=== PATIENT | female | born 1990 | race American Indian/Alaskan Native ===

== ENCOUNTER 2016-09-02 16:32 | Emergency (ER) | payer BC ==
--- NOTE | 2016-09-02 17:39 | Emergency Department Report ---
Chief Complaint: Chest Pain Stated Complaint: SOB/BODY ACHES Time Seen by Provider: 09/02/16 17:25 - HPI History of Present Illness: 26-year-old -German female comes in with chest pain that started on Tuesday but has gotten worse today. She reports that it worse when she takes deep breaths. She is also reports having abdominal pressure this is been present for at least one week. She reports a fever today no nausea vomiting or diarrhea. - Exam Vital Signs: Vital Signs 09/02/16 17:01 Temperature 98.7 F Pulse Rate 71 Respiratory 18 Rate Blood Pressure 124/82 O2 Sat by Pulse 100 Oximetry Physical Exam: Patient's alert and oriented 3 she appears to be in a lot of pain. Patient is not able to chin to chest heaviness or rigidity, cardiac S1-S2 regular rate and rhythm respiratory clear to auscultation but difficulty taking deep breaths secondary to pain. Abdomen soft mildly tender to the epigastric area. MSE screening note: Focused history and physical exam performed. Due to findings the following was ordered: Discuss with Dr. Cueva. CBC BMP d-dimer UA urine test ordered. ED Disposition for MSE Condition: Stable
[2016-09-02 18:15] LABS: Basophils % (Auto) 0.8 % (0.0-1.8); Eosinophils % (Auto) 4.2 % (0.0-4.3); Hematocrit 43.1 % (30.3-42.9); Hemoglobin 14.1 gm/dl (10.1-14.3); Mean Corpuscular HGB Conc 33 % (30-34); Mean Corpuscular Hemoglobin 27 pg (28-32); Mean Corpuscular Volume 83 fl (79-97); Red Blood Count 5.19 M/mm3 (3.65-5.03); Red Cell Distribution Width 12.4 % (13.2-15.2); White Blood Count 7.3 K/mm3 (4.5-11.0)
[2016-09-02 18:21] LABS: Alanine Aminotransferase 12 units/L (7-56); Albumin 4.3 g/dL (3.9-5); Albumin/Globulin Ratio 1.4 %; Alkaline Phosphatase 52 units/L (35-129); Anion Gap 14 mmol/L; BUN/Creatinine Ratio 16.66; Bilirubin,Total 0.9 mg/dL (0.1-1.2); Blood Urea Nitrogen 10 mg/dL (7-17); Calcium 9.8 mg/dL (8.4-10.2); Carbon Dioxide 27 mmol/L (22-30); Chloride 102.3 mmol/L (98-107); Glucose 84 mg/dL (65-100); Potassium 3.9 mmol/L (3.6-5.0); Sodium 139 mmol/L (137-145); Total Protein 7.3 g/dL (6.3-8.2)
[2016-09-02 18:35] LABS: Platelet Count 143 K/mm3 (140-440)
[2016-09-02 18:41] LABS: Mean Platelet Volume 9.7 fl (6-12)
[2016-09-02 19:26] LABS: Bilirubin,Urine NEG (Negative); Blood,Urine NEG (Negative); Ketones,Urine NEG (Negative); Leukocyte Esterase,Urine NEG (Negative); Nitrite,Urine NEG (Negative); Protein,Urine <15 mg/dL mg/dL (Negative); RBC,Urine < 1.0 /HPF (0.0-6.0); Urobilinogen,Urine < 2.0 mg/dL (<2.0); WBC,Urine < 1.0 /HPF (0.0-6.0)
[2016-09-03] MEDS ORDERED: VALIUM IV ONE (01:33)
[2016-09-03] MEDS ORDERED: NACL 0.9% 1000 ML 1,000 ML IV ONE (01:33)
[2016-09-03] MEDS ORDERED: TORADOL IV ONE (01:33)
--- NOTE | 2016-09-03 01:35 | Emergency Department Report ---
ED General Adult HPI - General Chief complaint: Chest Pain Stated complaint: SOB/BODY ACHES Time Seen by Provider: 09/02/16 17:25 Source: patient, RN notes reviewed Mode of arrival: Ambulatory Limitations: No Limitations - History of Present Illness Initial comments: This is a 26-year-old female. She is previously unknown to me. Her primary care doctor is Dr. Kam The patient presents to the ER with multiple complaints. She complains of bilateral paraspinal back pain, paracervical back pain, and pleuritic pain. She also complains of total body aches and subjective fever. This has been present for one week. She also complains of lower abdominal pain. No nausea, vomiting or diarrhea. No irritative or obstructive urinary symptoms. No vaginal discharge. No sore throat. The pleuritic pain does not radiate to the back, arms or neck. There is no posterior extremity pain, there is no control use, no recent trips greater than 4 hours, no recent hospital admissions. -: Gradual Location: back, abdomen Quality: aching Consistency: intermittent Improves with: rest Worsens with: movement Associated Symptoms: cough, fever/chills, loss of appetite, weakness - Related Data Previous Rx's Medication Instructions Recorded Last Taken Type Doxycycline [Vibramycin] 100 mg PO Q12HR #28 capsule 09/03/16 Unknown Rx Ketorolac [Toradol] 10 mg PO Q6H PRN #20 tablet 09/03/16 Unknown Rx Ondansetron [Zofran Odt] 4 mg PO QID PRN #20 tab.rapdis 09/03/16 Unknown Rx Allergies Allergy/AdvReac Type Severity Reaction Status Date / Time Latex, Natural Rubber Allergy Hives Verified 09/02/16 17:00 ED Review of Systems ROS: Stated complaint: SOB/BODY ACHES Other details as noted in HPI Constitutional: malaise, weakness ENT: congestion Respiratory: cough Cardiovascular: as per HPI Gastrointestinal: as per HPI Genitourinary: as per HPI Musculoskeletal: back pain, arthralgia, myalgia Skin: denies: lesions Neurological: weakness Psychiatric: anxiety ED Past Medical Hx - Past Medical History Hx Asthma: Yes - Surgical History Additional Surgical History: Adnoids - Social History Smoking Status: Never Smoker Substance Use Type: None - Medications Home Medications: Home Medications Medication Instructions Recorded Confirmed Last Taken Type Doxycycline [Vibramycin] 100 mg PO Q12HR #28 capsule 09/03/16 Unknown Rx Ketorolac [Toradol] 10 mg PO Q6H PRN #20 tablet 09/03/16 Unknown Rx Ondansetron [Zofran Odt] 4 mg PO QID PRN #20 tab.rapdis 09/03/16 Unknown Rx ED Physical Exam - General Limitations: No Limitations General appearance: alert, in no apparent distress - Head Head exam: Present: atraumatic, normocephalic - Eye Eye exam: Present: normal appearance, PERRL, EOMI. Absent: nystagmus - ENT ENT exam: Present: normal exam, normal orophraynx, mucous membranes moist, normal external ear exam - Neck Neck exam: Present: normal inspection, tenderness, full ROM, other (there is reproducible paracervical neck pain. is left-sided adenopathy noted, there is no trismus, malocclusion, there is no stridor. The patient is speaking in full sentences.). Absent: meningismus, lymphadenopathy, thyromegaly - Respiratory Respiratory exam: Present: normal lung sounds bilaterally. Absent: respiratory distress, wheezes, rales, rhonchi, stridor, chest wall tenderness - Cardiovascular Cardiovascular Exam: Present: regular rate, normal rhythm, normal heart sounds. Absent: bradycardia, tachycardia, irregular rhythm, systolic murmur, diastolic murmur, rubs, gallop - GI/Abdominal GI/Abdominal exam: Present: soft, tenderness, normal bowel sounds, other (his mild diffuse abdominal tenderness in the bilateral lower quadrants. There is no rebound, guarding or peritoneal signs.). Absent: distended, guarding, rebound, rigid, pulsatile mass - External exam: Present: normal external exam Speculum exam: Present: normal speculum exam Bi-manual exam: Present: cervical motion tendernes, adnexal tenderness, adnexal mass, other (escorted by BING Blelo during yeast culture operator exam) - Extremities Exam Extremities exam: Present: normal inspection, full ROM, normal capillary refill. Absent: tenderness, pedal edema, joint swelling, calf tenderness - Back Exam Back exam: Present: normal inspection, muscle spasm, paraspinal tenderness. Absent: tenderness, CVA tenderness (R) - Neurological Exam Neurological exam: Present: alert, oriented X3, normal gait, other (Extraocular movements intact. Tongue midline. No facial droop. Facial sensation intact to light touch in the V1, V2, V3 distribution bilaterally. 5 and 5 strength in 4 extremities.. Sensation is intact to light touch in 4 extremities.). Absent : motor sensory deficit - Psychiatric Psychiatric exam: Present: normal affect, normal mood - Skin Skin exam: Present: warm, dry, intact, normal color. Absent: rash ED Course Vital Signs 09/02/16 09/03/16 09/03/16 17:01 04:37 05:51 Temperature 98.7 F 98.3 F Pulse Rate 71 79 75 Respiratory 18 16 16 Rate Blood Pressure 124/82 Blood Pressure 111/63 119/76 [Left] O2 Sat by Pulse 100 98 99 Oximetry - Reevaluation(s) Reevaluation #1: 09/03/16 02:57 Differential diagnosis: Nonspecific pleuritis, viral syndrome, pelvic inflammatory disease, myositis, urinary tract infection, pulmonary embolus, strep pharyngitis, acute HIV syndrome, gonorrhea/chlamydia Assessment and plan: 25-year-old female with body aches, paraspinal neck pain, pleuritic pain, abdominal pain. She is afebrile with reassuring vital signs, has no pulmonary embolus or DVT risk factors, she is low risk by well's criteria , and she is perc negative. A d-dimer was negative. Low risk by hard score, low risk by BRENDA score. Neck pain is paraspinal and reproducible. She is afebrile ER, mentating normally, given this, I think deep space neck abscess is very unlikely. She is somewhat tender in her abdomen, no cervical motion tenderness and bilateral adnexal tenderness. She will be treated symptomatically, we will obtain a CT scan of the abdomen and pelvis. We will reassess after initial data points. Reevaluation #2: 09/03/16 04:45 Story of the chest is negative. Patient with cervical motion tenderness and adnexal tenderness. CT scan of the abdomen and pelvis demonstrates no secondary signs of appendicitis. The appendix itself is not identified. There is nonspecific enhancement of the uterus, and nonspecific fluid. Patient not currently on her menstruation. Highly suspect pelvic inflammatory disease. Case is discussed with obstetrics on-call, Dr. Song. We both agree that given the current set of vital signs and laboratory data, patient does not require admission, and neither of us believe that the patient requires an emergent ultrasound at this time. No abscess is identified. Patient is feeling much improved, and has good range of motion of her neck. She will be treated empirically with doxycycline and ceftriaxone. She will be discharged with instructions to follow-up in 48 hours for recheck. She can follow-up Either in the distribution clerk's office, or return to the ER. She is afebrile, reassuring vital signs, tolerating liquid feeds, young with no other medical comorbidities, and appears to be reliable. ED Medical Decision Making - Lab Data Result diagrams: 09/02/16 17:45 09/02/16 17:45 Vital Signs 09/02/16 17:01 Temperature 98.7 F Pulse Rate 71 Respiratory 18 Rate Blood Pressure 124/82 O2 Sat by Pulse 100 Oximetry Lab Results 09/02/16 09/02/16 09/02/16 Range/Units 17:45 17:45 17:45 WBC 7.3 (4.5-11.0) K/mm3 RBC 5.19 H (3.65-5.03) M/mm3 Hgb 14.1 (10.1-14.3) gm/dl Hct 43.1 H (30.3-42.9) % MCV 83 (79-97) fl MCH 27 L (28-32) pg MCHC 33 (30-34) % RDW 12.4 L (13.2-15.2) % Plt Count 143 (140-440) K/mm3 Lymph % (Auto) 35.0 (13.4-35.0) % [place] % (Auto) 5.8 (0.0-7.3) % Eos % (Auto) 4.2 (0.0-4.3) % Baso % (Auto) 0.8 (0.0-1.8) % Lymph # 2.5 (1.2-5.4) K/mm3 [place] # 0.4 (0.0-0.8) K/mm3 Eos # 0.3 (0.0-0.4) K/mm3 Baso # 0.1 (0.0-0.1) K/mm3 Seg Neutrophils % 54.2 (40.0-70.0) % Seg Neutrophils # 4.0 (1.8-7.7) K/mm3 D-Dimer 211.35 (0-234) ng/mlDDU Sodium 139 (137-145) mmol/L Potassium 3.9 (3.6-5.0) mmol/L Chloride 102.3 (98-107) mmol/L Carbon Dioxide 27 (22-30) mmol/L Anion Gap 14 mmol/L BUN 10 (7-17) mg/dL Creatinine 0.6 L (0.7-1.2) mg/dL Estimated GFR > 60 ml/min BUN/Creatinine Ratio 16.66 % Glucose 84 (65-100) mg/dL Calcium 9.8 (8.4-10.2) mg/dL Total Bilirubin 0.9 (0.1-1.2) mg/dL AST 12 (5-40) units/L ALT 12 (7-56) units/L Alkaline Phosphatase 52 (35-129) units/L Total Protein 7.3 (6.3-8.2) g/dL Albumin 4.3 (3.9-5) g/dL Albumin/Globulin Ratio 1.4 % Urine Color (Yellow) Urine Turbidity (Clear) Urine pH (5.0-7.0) Ur Specific [place] (1.003-1.030) Urine Protein (Negative) mg/dL Urine Glucose (UA) (Negative) mg/dL Urine Ketones (Negative) mg/dL Urine Blood (Negative) Urine Nitrite (Negative) Ur Reducing Substances Urine Bilirubin (Negative) Urine Ictotest Urine Urobilinogen (<2.0) mg/dL Ur Leukocyte Esterase (Negative) Urine WBC (Auto) (0.0-6.0) /HPF Urine RBC (Auto) (0.0-6.0) /HPF U Epithel Cells (Auto) (0-13.0) /HPF Urine HCG, Qual (Negative) 09/02/16 Range/Units 18:54 WBC (4.5-11.0) K/mm3 RBC (3.65-5.03) M/mm3 Hgb (10.1-14.3) gm/dl Hct (30.3-42.9) % MCV (79-97) fl MCH (28-32) pg MCHC (30-34) % RDW (13.2-15.2) % Plt Count (140-440) K/mm3 Lymph % (Auto) (13.4-35.0) % [place] % (Auto) (0.0-7.3) % Eos % (Auto) (0.0-4.3) % Baso % (Auto) (0.0-1.8) % Lymph # (1.2-5.4) K/mm3 [place] # (0.0-0.8) K/mm3 Eos # (0.0-0.4) K/mm3 Baso # (0.0-0.1) K/mm3 Seg Neutrophils % (40.0-70.0) % Seg Neutrophils # (1.8-7.7) K/mm3 D-Dimer (0-234) ng/mlDDU Sodium (137-145) mmol/L Potassium (3.6-5.0) mmol/L Chloride (98-107) mmol/L Carbon Dioxide (22-30) mmol/L Anion Gap mmol/L BUN (7-17) mg/dL Creatinine (0.7-1.2) mg/dL Estimated GFR ml/min BUN/Creatinine Ratio % Glucose (65-100) mg/dL Calcium (8.4-10.2) mg/dL Total Bilirubin (0.1-1.2) mg/dL AST (5-40) units/L ALT (7-56) units/L Alkaline Phosphatase (35-129) units/L Total Protein (6.3-8.2) g/dL Albumin (3.9-5) g/dL Albumin/Globulin Ratio % Urine Color Straw (Yellow) Urine Turbidity Clear (Clear) Urine pH 6.0 (5.0-7.0) Ur Specific [place] 1.006 (1.003-1.030) Urine Protein <15 mg/dl (Negative) mg/dL Urine Glucose (UA) Neg (Negative) mg/dL Urine Ketones Neg (Negative) mg/dL Urine Blood Neg (Negative) Urine Nitrite Neg (Negative) Ur Reducing Substances Not Reportable Urine Bilirubin Neg (Negative) Urine Ictotest Not Reportable Urine Urobilinogen < 2.0 (<2.0) mg/dL Ur Leukocyte Esterase Neg (Negative) Urine WBC (Auto) < 1.0 (0.0-6.0) /HPF Urine RBC (Auto) < 1.0 (0.0-6.0) /HPF U Epithel Cells (Auto) < 1.0 (0-13.0) /HPF Urine HCG, Qual Negative (Negative) - EKG Data 09/03/16 02:59 normal sinus, 64 bpm, normal axis, normal intervals, not morphologically consistent with STEMI. - Radiology Data Radiology results: report reviewed, image reviewed interpreted by me: X-ray of the chest is negative for acute disease. CT scan of the abdomen and pelvis with IV contrast. Appendix cannot be identified. There is slight bladder wall thickening. The uterus appears retroverted. There is moderate enhancement of the myometrium and endometrium of the fundus of the uterus. Fluid endometrium is nonspecific. Uterus retroverted and there is moderate apparent enhancement of the myometrium and endometrium of the fundus of the uterus. Inflammatory or infectious process involving the uterus itself is not excluded. Overall the uterus is not well if I waited by CT. No evidence of abscess or free fluid or free air. There is no CT evidence of inflammation in the right lower quadrant. Critical care attestation.: If time is entered above; I have spent that time in minutes in the direct care of this critically ill patient, excluding procedure time. ED Disposition Clinical Impression: Abdominal pain Disposition: DISCHARGED TO HOME OR SELFCARE Is pt being admited?: No Does the pt Need Aspirin: No Condition: Stable Instructions: Pelvic Inflammatory Disease (ED) Additional Instructions: As we discussed, your laboratory studies appeared to be within normal limits. You are not . ct scan suggested inflammation of the reproductive organs Given all this, you'll be treated empirically for disease called pelvic inflammatory disease. We typically treat young females with unexplained lower abdominal pain to protect your ability to have children safely in the future. Cultures were sent today, and results will be available next 3-5 days. Please have your primary care doctor call the medical records department to obtain your culture results. Take the antibiotic therapy as directed. Take the nausea medication and pain medication as directed. I recommend outpatient testing for sexually transmitted diseases, including hepatitis, syphilis and HIV. I also recommend that you abstain from sexual activity until you have completed her antibiotic therapy, a physician states that it is safe for you to resume sexual activity, and any partners that you have been sexually active with have been tested/treated/evaluated for sexual transmitted diseases. I recommend that you follow up with a physician in 48 hours for a recheck. you may return to the emergency room for a recheck, or follow-up with any of the listed PRIMARY THERAPIST doctors for a recheck. I recommend that you return to the ER right away with worsening pain, migration of pain, intractable nausea/vomiting, inability tolerate liquid feeds. Prescriptions: Doxycycline [Vibramycin] 100 mg PO Q12HR #28 capsule Ketorolac [Toradol] 10 mg PO Q6H PRN #20 tablet PRN Reason: Pain Ondansetron [Zofran Odt] 4 mg PO QID PRN #20 tab.rapdis PRN Reason: Nausea Referrals: PRIMARY CAREMD [Primary Care Provider] - 3-5 Days RORY SONG MD [Staff Physician] - 3-5 Days [facility] [Provider Group] - 3-5 Days [facility] [Provider Group] - 3-5 Days [facility] [Provider Group] - 3-5 Days Forms: Work/School Release Form(ED)
[2016-09-03 03:22] LABS: Creatine Kinase 50 units/L (30-135)
--- NOTE | 2016-09-03 04:29 | Cat Scan Report ---
FINAL REPORT PROCEDURE: CT ABDOMEN PELVIS W CON TECHNIQUE: Computerized axial tomography of the abdomen and pelvis was performed after the IV injection of iodinated nonionic contrast. Oral contrast was not given HISTORY: Abdominal pain. Left lower quadrant abdominal pain. COMPARISON: No prior studies are available for comparison. FINDINGS: Visualized lower thorax: There is minimal atelectasis in the left lung base.. Liver: Normal size and attenuation. Spleen: Normal size and attenuation. Gallbladder and biliary system: Normal. Pancreas: Normal. Adrenals: Normal. Kidneys: Normal. GI tract: The bowel appears unremarkable when considering lack of oral contrast. However the appendix cannot be identified with certainty this in part may be due to a paucity of abdominal fat in this relatively thin patient. The cecum does extend into the pelvis which also limits evaluation.. Lymph nodes and mesentery: Normal. Vasculature: Normal. Bladder: The urinary bladder is decompressed and therefore not well evaluated. Slight bladder wall thickening is nonspecific but might be due to the lack of distention of the bladder. Reproductive organs: The uterus appears retroverted. There is moderate apparent enhancement of the myometrium and endometrium of the fundus of the uterus. The significance of this is uncertain. Some fluid in the endometrium of the uterus is nonspecific and could simply be due to the stage of patient's menstrual cycle. Overall the uterus is not well evaluated by CT.. Peritoneum: No free fluid. Musculoskeletal structures: No significant abnormality. Other: None. IMPRESSION: 1. The uterus is retroverted and there is moderate apparent enhancement of the myometrium and endometrium of the fundus of the uterus. The significance of this is uncertain. An inflammatory or infectious process involving the uterus itself is not excluded. Overall the uterus is not well evaluated by CT. Follow-up recommended to make sure this resolves. Pelvic ultrasound may also be helpful. If this finding does not resolve on CT follow-up and symptoms remain unexplained, pelvic MRI may also be helpful as clinically determined. 2. There is no CT evidence of abscess or free fluid or free air or bowel obstruction. 3. The appendix cannot be identified. There is no CT evidence of inflammation in the right lower quadrant. However because the appendix cannot be identified, if there is strong clinical evidence to suggest appendicitis then this diagnosis should still be considered. 4. If symptoms remain unexplained and further evaluation is still desired, follow-up CT scan using both oral and IV contrast recommended only if clinically indicated.
[2016-09-03] MEDS ORDERED: VIBRAMYCIN PO ONE (04:33)
[2016-09-03] MEDS ORDERED: ROCEPHIN/NS 1 GM/50 ML 1 GM/50 ML BAG IV ONE (04:33)
[2016-09-03] MEDS ORDERED: NACL 0.9% 1000 ML 1,000 ML ONE (04:53)
[2016-09-03] MEDS ORDERED: TORADOL ONE ×2 (04:53→04:54)
[2016-09-03] MEDS ORDERED: VALIUM ONE (04:57)
--- NOTE | 2016-09-03 05:35 | XRay Report ---
FINAL REPORT PROCEDURE: XR CHEST ROUTINE 2V TECHNIQUE: PA and lateral chest radiographs were obtained. CPT 51525 HISTORY: pleurisy COMPARISON: No prior studies are available for comparison. FINDINGS: Heart: Normal. Mediastinum/Vessels: Normal. Lungs/Pleural space: Normal. Bony thorax: No acute osseous abnormality. Other: IMPRESSION: Normal examination.
[2016-09-03 05:53] VITALS: BP 119/76
== END 2016-09-03 05:51 | disposition home or self-care (01) ==
LOC: ED 16:32
DX: R10.31 Right lower quadrant pain (principal); R10.32 Left lower quadrant pain; J45.909 Unspecified asthma, uncomplicated; Z91.040 Latex allergy status
CPT/HCPCS: 36415; 71020; 74177; 80053; 81001; 81025; 82550; 84484; 85025; 85379; 87116; 87210; 87430; 87591; 93005; 93010; 96365; 96375; 99285; J0696; J1885; J3360; J7030; Q9967